=== PATIENT | male | born 1990 | race Caucasian/White ===

== ENCOUNTER 2021-06-05 23:05 | Emergency (ER) | payer MEDICAID, OTHER ==
[~2021-06-05] VITALS: Ht 180.3 cm; Wt 77.1 kg
[2021-06-06 04:04] LABS: Basophils # (auto) 0 10 ^3/uL (0-0.2); Basophils % (auto) 0.6 % (0.0-2.0); Eosinophils # (auto) 0.1 10 ^3/uL (0-0.8); Eosinophils % (auto) 1.9 % (0.0-7.0); Hematocrit 42.5 % (41.0-53.0); Hemoglobin 15.3 g/dL (13.5-17.5); Lymphocytes # (auto) 2.3 10 ^3/uL (0.4-5.4); Lymphocytes % (auto) 38.5 % (10.0-50.0); Mean Corpuscular Hemoglobin 32.4 pg (28.0-32.0); Mean Corpuscular Hgb Conc. 35.9 g/dL (32.0-36.0); Mean Corpuscular Volume 90.2 fL (80.0-100.0); Monocytes # (auto) 0.5 10 ^3/uL (0-1.3); Monocytes % (auto) 7.8 % (0.0-12.0); Neutrophils % (auto) 51.2 % (37.0-80.0); Red Blood Cells 4.72 10^6/uL (4.5-5.90); Red Cell Distribution Width 13.6 % (11.8-14.3); White Blood Cell 5.9 10^3/uL (4.4-10.8)
[2021-06-06 04:15] LABS: Albumin 4.4 g/dL (3.4-5.0); BUN/Creatinine Ratio 13.8; Calcium 9.5 mg/dL (8.5-10.1); Potassium 3.8 mmol/L (3.5-5.1)
[2021-06-06 04:19] LABS: Bilirubin, Total 0.7 mg/dL (0.2-1.0); Total Protein 8.3 g/dL (6.4-8.2)
[2021-06-06] MEDS ORDERED: ASPirin 81 mg TAB PO ONE (07:15)
[2021-06-06 07:20] VITALS: BP 103/59
== END 2021-06-06 08:01 | disposition home or self-care (01) ==
LOC: ER 23:05
DX: R07.89 Other chest pain (principal); F41.9 Anxiety disorder, unspecified
CPT/HCPCS: 36415; 80053; 84484; 85025; 93005

== ENCOUNTER 2021-06-12 14:46 | Emergency (ER) | payer MEDICAID ==
[~2021-06-12] VITALS: Ht 182.9 cm; Wt 72.6 kg
[2021-06-12 15:40] VITALS: BP 105/69
[2021-06-12] MEDS ORDERED: PRED20TA2 PO (16:11)
[2021-06-12] MEDS ORDERED: IBUP800T27 PO (16:11)
[2021-06-12] MEDS ORDERED: KETOROLAC TROMETH 60MG/2ML VIAL IM ONE (16:15)
== END 2021-06-12 16:30 | disposition home or self-care (01) ==
LOC: ER 14:46
DX: M51.36 Other intervertebral disc degeneration, lumbar region (principal); G89.29 Other chronic pain; M54.50 Low back pain, unspecified; Z79.1 Long term (current) use of non-steroidal anti-inflammatories (NSAID); Z79.899 Other long term (current) drug therapy
CPT/HCPCS: 72100; 96372; 99283; J1885

== ENCOUNTER 2021-07-23 09:51 | Emergency (ER) | payer MEDICAID ==
[~2021-07-23] VITALS: Ht 180.3 cm; Wt 72.6 kg
[2021-07-23 09:51] VITALS: BP 117/79
[~2021-07-23 09:51] MED LIST: IBUP800T27 PO; PRED20TA2 PO
[2021-07-23] MEDS ORDERED: AMOX-277 PO (11:23)
[2021-07-23] MEDS ORDERED: PRED20TA2 PO (11:23)
[2021-07-23] MEDS ORDERED: methylPREDNISolone SOD SUCC 125 MG/2 ML VL IM ONE (11:30)
== END 2021-07-23 11:32 | disposition home or self-care (01) ==
LOC: ER 09:51
DX: J06.9 Acute upper respiratory infection, unspecified (principal); R22.0 Localized swelling, mass and lump, head; Z79.2 Long term (current) use of antibiotics; Z79.1 Long term (current) use of non-steroidal anti-inflammatories (NSAID); Z79.899 Other long term (current) drug therapy
CPT/HCPCS: 96372; 99283; J2930

== ENCOUNTER 2021-08-24 09:39 | Emergency (ER) | payer MEDICAID ==
[~2021-08-24] VITALS: Ht 177.8 cm; Wt 74.8 kg
[~2021-08-24 09:39] MED LIST changes: +AMOX-277 PO
[2021-08-24] MEDS ORDERED: KETOROLAC TROMETH 60MG/2ML VIAL IM ONE (10:30)
[2021-08-24 10:31] VITALS: BP 102/69
[2021-08-24] MEDS ORDERED: PRED20TA2 PO (10:54)
== END 2021-08-24 11:10 | disposition home or self-care (01) ==
LOC: ER 09:39
DX: M51.37 Other intervertebral disc degeneration, lumbosacral region (principal); M62.838 Other muscle spasm
CPT/HCPCS: 72100; 96372; 99283; J1885

== ENCOUNTER 2021-10-11 02:11 | Emergency (ER) | payer MEDICAID ==
[~2021-10-11] VITALS: Ht 180.3 cm; Wt 72.2 kg
[2021-10-11 02:23] VITALS: BP 110/76
== END 2021-10-11 05:57 | disposition left against medical advice (07) ==
LOC: ER 02:11
DX: R07.9 Chest pain, unspecified (principal); R10.9 Unspecified abdominal pain; Z53.21 Procedure and treatment not carried out due to patient leaving prior to being seen by health care provider
CPT/HCPCS: 93005